=== PATIENT | female | born 1970 | race Two or more races ===

== ENCOUNTER 2016-05-10 22:54 | Emergency (ER) | payer OTHER ==
--- NOTE | ~2016-05-10 | CR20 ---
[facility] A Service of [facility] & [facility] RADIOLOGY TEXT RESULTS PATIENT: KENTON OLIVER LOCATION: [facility] : 74 UNIT #: [id number] AGE: [address]: Teresa Kaye APRN SEX: F ORDER DR: [id number] [facility] [address] [place], [place] [address] [id number] E MR#: [id number] Acc #: [id number] NAME: KENTON OLIVER. : 1970 SEX: F STUDY DATE/TIME: 05/10/2016 22:47 UNIT: [facility] ROOM: STUDY DESCRIPTION: CR Ankle Min 3 Views Lt Attending Physician: Teresa Kaye A.P.R.N. Ordering Physician: Teresa Kaye A.P.R.N. Primary Care Physician: Elina Farooq M.D. MEDICAL IMAGING REPORT This report is preliminary unless electronic signature is present EXAM Left ankle, 05/10 at 2247. INDICATION Pain and swelling laterally for 2 weeks. No trauma. FINDINGS AP, lateral, and oblique projections of the ankle show satisfactory integrity of the joint mortise with a smooth articular surface. There is no identifiable fracture, dislocation, or radiopaque foreign body. IMPRESSION Normal ankle. Dictated by... Rajesh Hoyos Jr., M.D. THIS IS AN ELECTRONICALLY VERIFIED REPORT Rajesh Hoyos Jr., M.D. at 05/11/2016 12:38 PM CADENCEK/elpidio TD: 05/11/2016 09:10 JOB #: [id number] MEDICAL IMAGING REPORT COPY
[~2016-05-10 22:54] MED LIST: LOSARTAN-HCTZ1 EAC1 PO; NAPROSYN500 MG PO; NORCO1 TAB 10/3 PO; POTASSIUM; PRILOSEC20 MG PO; TYLENOL #3 PO
== END 2016-05-10 23:32 | disposition home or self-care (01) ==
LOC: CED 22:54
DX: S93.402A Sprain of unspecified ligament of left ankle, initial encounter (principal); K21.9 Gastro-esophageal reflux disease without esophagitis; Z90.49 Acquired absence of other specified parts of digestive tract; Z98.51 Tubal ligation status; X58.XXXA Exposure to other specified factors, initial encounter
CPT/HCPCS: 29515; 73610; 96372; 99283; J1885

== ENCOUNTER 2016-05-24 22:26 | Emergency (ER) | payer OTHER ==
--- NOTE | ~2016-05-24 | CR72 ---
[facility] A Service of [facility] & [facility] RADIOLOGY TEXT RESULTS PATIENT: KENTON OLIVER LOCATION: [facility] : 74 UNIT #: [id number] AGE: [address]: Teresa Kaye APRN SEX: F ORDER DR: [id number] [facility] [address] [place], [place] [address] [id number] E MR#: [id number] Acc #: [id number] NAME: KENTON OLIVER. : 1970 SEX: F STUDY DATE/TIME: 05/24/2016 22:55 UNIT: [facility] ROOM: STUDY DESCRIPTION: CR Chest Single View Portable Attending Physician: Teresa Kaye A.P.R.N. Ordering Physician: Teresa Kaye A.P.R.N. Primary Care Physician: Elina Farooq M.D. MEDICAL IMAGING REPORT This report is preliminary unless electronic signature is present EXAM Chest x-ray 05/24/2016 HISTORY 45-year-old female in the ED complaining of new onset cough, fever and wheezing today. TECHNIQUE AP portable upright chest x-ray. FINDINGS The examination is negative. The lungs are expanded and clear. No visible pulmonary infiltrate or pleural effusion. Heart size and pulmonary vascularity are normal. No change since 05/17/2015. IMPRESSION Negative chest. No change since 05/17/2015. Dictated by... Eddie Moreland M.D. THIS IS AN ELECTRONICALLY VERIFIED REPORT Eddie Moreland M.D. at 05/29/2016 5:00 PM RCAHEL/rishabh TD: 05/25/2016 07:18 JOB #: [id number] MEDICAL IMAGING REPORT Page 1 of 1 COPY
[2016-05-24 22:36] LABS: INFLUENZA A NEG (NEG); INFLUENZA B NEG (NEG)
== END 2016-05-24 23:40 | disposition home or self-care (01) ==
LOC: CFTX 22:26
PROVIDERS: Emergency Medicine
DX: J06.9 Acute upper respiratory infection, unspecified (principal); I10 Essential (primary) hypertension; K21.9 Gastro-esophageal reflux disease without esophagitis
CPT/HCPCS: 71010; 87651; 87804; 99283

== ENCOUNTER 2016-05-26 17:08 | Emergency (ER) | payer OTHER ==
[2016-05-26 17:07] LABS: INFLUENZA A NEG (NEG); INFLUENZA B POS (NEG)
[2016-05-26 18:30] LABS: URINE SOURCE CLEAN CATCH
[2016-05-26 18:36] LABS: URINE APPEARANCE CLEAR; URINE BILIRUBIN NEG (NEG); URINE BLOOD NEG (NEG); URINE COLOR YELLOW; URINE GLUCOSE NEG (NEG); URINE KETONE NEG (NEG); URINE LEUKOCYTE ESTERASE NEG (NEG); URINE NITRATE NEG (NEG); URINE PROTEIN NEG (NEG); URINE SPECIFIC GRAVITY 1.023 (1.003-1.035)
[2016-05-26 19:23] LABS: CULTURE INDICATED? NO
== END 2016-05-26 19:28 | disposition home or self-care (01) ==
LOC: CFTX 17:08
PROVIDERS: Nurse Practitioner
DX: J10.1 Influenza due to other identified influenza virus with other respiratory manifestations (principal); R11.2 Nausea with vomiting, unspecified; I10 Essential (primary) hypertension; Z86.73 Personal history of transient ischemic attack (TIA), and cerebral infarction without residual deficits; Z90.49 Acquired absence of other specified parts of digestive tract; Z98.51 Tubal ligation status
CPT/HCPCS: 81003; 87651; 87804; 96361; 96374; 99284; J2405

== ENCOUNTER 2016-08-06 22:37 | Emergency (ER) | payer OTHER | END 2016-08-07 00:25 | disposition left against medical advice (07) | LOC: CED 22:37 | DX: Z53.21 Procedure and treatment not carried out due to patient leaving prior to being seen by health care provider (principal) | CPT/HCPCS: 87651 ==

== ENCOUNTER 2016-10-01 18:51 | Emergency (ER) | payer OTHER ==
[~2016-10-01] VITALS: Ht 162.6 cm; Wt 90.7 kg
--- NOTE | ~2016-10-01 | CR112 ---
[facility] A Service of [facility] & [facility] RADIOLOGY TEXT RESULTS PATIENT: KENTON OLIVER LOCATION: [facility] : 74 UNIT #: [id number] AGE: [address]: MIHIR CARMICHAEL APRN SEX: F ORDER DR: [id number] [facility] [address] [place], [place] [address] [id number] E MR#: [id number] Acc #: [id number] NAME: KENTON OLIVER : 1970 SEX: F STUDY DATE/TIME: 10/01/2016 19:31 UNIT: [facility] ROOM: STUDY DESCRIPTION: CR Finger 2 View 4Th Lt Attending Physician: Mihir Carmichael Aprn Ordering Physician: Mihir Carmichael Aprn Primary Care Physician: Elina Farooq M.D. MEDICAL IMAGING REPORT This report is preliminary unless electronic signature is present EXAM Left fourth digit, 3 views. HISTORY Finger injury today in door. Pain. FINDINGS Three views of the left fourth digit demonstrate normal bone alignment. No fracture or joint space narrowing or dislocation. Soft tissue swelling along the volar margin of the fingertip. IMPRESSION No fracture or opaque foreign body. Dictated by... Gabriel Irwin M.D. THIS IS AN ELECTRONICALLY VERIFIED REPORT Gabriel Irwin M.D. at 10/02/2016 2:37 PM DFL/elpidio TD: 10/02/2016 09:49 JOB #: [id number] MEDICAL IMAGING REPORT Page 1 of 1 COPY
== END 2016-10-01 21:12 | disposition home or self-care (01) ==
LOC: CED 18:51 → CFTX 18:51
DX: S60.415A Abrasion of left ring finger, initial encounter (principal); K21.9 Gastro-esophageal reflux disease without esophagitis; Z23 Encounter for immunization; X58.XXXA Exposure to other specified factors, initial encounter; Y92.018 Other place in single-family (private) house as the place of occurrence of the external cause
CPT/HCPCS: 29130; 73140; 90471; 90715; 99283

== ENCOUNTER 2016-10-12 13:26 | Emergency (ER) | payer OTHER ==
[~2016-10-12] VITALS: Ht 162.6 cm; Wt 90.7 kg
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
== END 2016-10-12 17:35 | disposition home or self-care (01) ==
LOC: CED 13:26
DX: S46.911A Strain of unspecified muscle, fascia and tendon at shoulder and upper arm level, right arm, initial encounter (principal); S16.1XXA Strain of muscle, fascia and tendon at neck level, initial encounter; K21.9 Gastro-esophageal reflux disease without esophagitis; I10 Essential (primary) hypertension; V49.00XA Driver injured in collision with unspecified motor vehicles in nontraffic accident, initial encounter; Y92.410 Unspecified street and highway as the place of occurrence of the external cause
CPT/HCPCS: 72040; 73030; 99284